=== PATIENT | female | born 1990 | race Caucasian/White ===

== ENCOUNTER 2017-01-18 01:46 | Emergency (ER) | payer BC, MEDICAID ==
--- NOTE | ~2017-01-18 | OR ---
PATIENT'S NAME: NEO TERAN [facility] AGE: 26 Y [address] ROOM: [place] [id number] LOCATION: [facility] ADMIT DATE: 01/18/2017 OR/Procedure Report DISCHARGE DATE: 01/18/2017 FAMILY PHYSICIAN: Nomi Solomon MD ATTENDING PHYSICIAN: Myles Marcus SURGEON: Reggie Badillo MD/GREY DECORATOR MANNEQUIN: DATE OF PROCEDURE: 01/18/2017 CONSULTATION AND PROCEDURE REASON FOR CONSULTATION: A 26-year-old young lady, who came into the emergency room on January 18 with a subluxed left TMJ. I was called in to treat her. PROCEDURE: On exam, she had obvious subluxation left TMJ, which was actually quite easily reduced with downward and backward pressure on the mandible. We cautioned her not to open her mouth very wide, follow a soft diet for several days, and gave her my cell phone number for a followup. REGGIE BADILLO MD/GREY MGT/modl /[id number] d: t: 03/05/17 0750, OPERATIVE SUMMARY
--- NOTE | ~2017-01-18 | OR ---
PATIENT'S NAME: NEO TERAN [facility] AGE: 26 Y [address] ROOM: [place] [address] LOCATION: [facility] ADMIT DATE: 01/18/2017 OR/Procedure Report DISCHARGE DATE: 01/18/2017 FAMILY PHYSICIAN: Nomi Solomon MD ATTENDING PHYSICIAN: Myles Marcus SURGEON: Reggie Badillo MD/GREY SUPPORT CLERK: DATE OF PROCEDURE: 01/18/2017 This is a 26-year-old female, referred from [place] with a subluxation of the right TMJ. On exam, she is in a subluxed position, that is with her mouth stuck open, drooling, and in considerable distress. This was relocated with very little difficulty with downward pressure on her right mandibular teeth. INSTRUCTIONS: Diet as tolerated, and use great caution with opening her mouth, it would be best if she did not open mouth very wide for 2 to 3 days. She can certainly call me p.r.n. We gave her my office number. REGGIE ABDILLO MD/GREY ROBERTST/carol /[id number] d: t: 01/18/17 1154, OPERATIVE SUMMARY
== END 2017-01-18 02:12 | disposition disaster alternative care site (69) ==
LOC: GMED 01:46
PROC: 0RSCXZZ Reposition Right Temporomandibular Joint, External Approach (ICD-10-PCS; principal; 2017-01-18)
DX: S03.01XA Dislocation of jaw, right side, initial encounter (principal); X58.XXXA Exposure to other specified factors, initial encounter